=== PATIENT | male | born 1985 | race Caucasian/White ===

== ENCOUNTER 2019-08-16 09:33 | Emergency (ER) | payer OTHER, SELFPAY ==
[2019-08-16 09:35] VITALS: BP 150/105; PULSE 81; RESP 18; TEMP 36.1; O2SAT 97; BMI 30.5
--- NOTE | 2019-08-16 09:48 | CT_ITS ---
STUDY: CT ABDOMEN AND PELVIS WITHOUT CONTRAST REASON FOR EXAM: Male, 34 years old. RIGHT FLANK PAIN -- HX-KIDNEY STONE RADIATION DOSAGE (If Supplied By Facility): CTDIvol = ( 15.29 ) mGy, DLP = ( 886.21 ) mGycm TECHNIQUE: Transaxial images were obtained from the dome of the diaphragm to the symphysis pubis without oral contrast, and without intravenous contrast. Sagittal and coronal images were reconstructed. Individualized dose optimization techniques were used for this CT. COMPARISON: None. FINDINGS: There is a 4 mm right lung nodule (axial image #3 series 2) The visualized portions of the heart are within normal limits. There is decreased attenuation of the liver consistent with steatosis. Normal gallbladder and extrahepatic biliary system. Normal spleen. Normal pancreas. Normal bilateral adrenal glands. There is mild hydroureteronephrosis on the right there is a 4 mm calculus at the distal ureter adjacent to the bladder (axial image #169 series 2) Normal left kidney. Normal visualized stomach. Normal small intestine. Normal colon. The appendix is visualized and appears normal. Normal abdominal aorta. Normal inferior vena cava. Normal retroperitoneum. Normal urinary bladder. Normal abdominal wall. Normal osseous structures. CT/Abdomen/Pelvis without Cont IMPRESSION: 4 mm distal ureteral calculus with mild hydroureteronephrosis on the right. 4 mm right lung nodule. Dedicated CT of the chest is recommended. Liver steatosis. Electronically Signed: Martín Smalls MD at 10:37 EST Tel , Service support ,
--- NOTE | 2019-08-16 09:51 | ED.VIS.GEN ---
History of Present Illness Chief Complaint: Flank Pain Informant: Patient, Family Narrative: Patient states that approximately 2 days ago he began to have a pain in the right flank. He was asymptomatic yesterday this morning pain returned in the right flank and in the right lower abdomen. The patient notes nausea and vomiting. He states this feels very similar to the kidney stone he had approximately 2 years ago. He did not have to have surgery to pass it. He denies any fevers. He denies any diarrhea. No prior abdominal surgeries. Past Medical History - Allergies and Home Meds Allergies/Adverse Reactions: Allergies No Known Allergies Allergy (Verified 08/16/19 09:35) Primary Care Physician: Ana Rosa Michele MD [STAFF PHYSICIAN] - (call to arrange follow up for the pulmonary nodule we discussed) Smoking Status: Never smoker Review of Systems General: Denies: Chills, Fever, Sweats Eyes: Denies: Visual changes - bilaterally, Diplopia ENT: Denies: Rhinorrhea, Sore throat Cardiovascular: Denies: Chest pain, Palpitations Respiratory: Denies: Dyspnea, Cough, Dyspnea on exertion Gastrointestinal: Reports: Nausea, Vomiting. Denies: Abdominal pain, Diarrhea, Melena, Hematochezia Genitourinary: Reports: - - Right flank pain. Denies: Dysuria, Hematuria, Frequency Musculoskeletal: Denies: Back pain, Extremity Pain Skin: Denies: Rash, Wounds Neurological: Denies: Headache, Weakness, Numbness Physical Exam Vital Signs/Narrative: Vital Signs Temp Pulse Resp BP Pulse Ox 08/16/19 09:35 97 F L 81 18 150/105 H 97 Inital Vital Signs reviewed: Yes General: Well nourished, Well developed, No Acute Distress, - - Patient appears in pain pacing around the room holding the right flank Head: Normocephalic, Atraumatic Eyes: Perrl, EOMI ENT: Moist mucous membranes, No rhinorrhea Neck: Supple, Nontender Cardiovascular: Regular rate, Regular rhythm, No murmurs Respiratory: No distress, CTA bilaterally, Chest nontender Abdomen: Soft, Nontender, Nondistended, Normal bowel sounds Back: Nontender, Normal Inspection Extremities: Nontender, No edema Skin: Normal color, No rash Neurological: Alert, Oriented x3, Cranial nerves II-XII grossly intact, Normal Strength, Normal Sensation Psychological: Normal affect, Normal Mood Diagnostic/Tx/Re-eval - Medical Decision Making Creatinine was normal. Urinalysis demonstrates some microscopic blood. White count is normal. CT renal pelvis demonstrates a distal 4 mm stone on the right with mild hydronephroureter. Incidental pulmonary nodules also noted. These findings were relayed to the patient and recommended follow-up with primary care. The patient was given Toradol morphine and Zofran and fluids and feeling better. I will write for oxycodone and Zofran. Return if worsening or concerns. ED Disposition - Plan for ED Patient: Disposition: Home or Assisted Living Diagnosis: Ureterolithiasis, Pulmonary nodule Instructions: KIDNEY STONE w/ Colic, PULMONARY NODULE, Solitary Prescriptions: Oxycodone [Oxyir] 5 - 10 mg PO Q6H PRN PRN 4 Days #20 tab PRN Reason: Pain Or Fever Prescription Printed Ondansetron [Zofran Odt] 4 mg PO Q6H PRN PRN #10 tab PRN Reason: Nausea Prescription Printed Referrals: Ana Rosa Michele MD [STAFF PHYSICIAN] - (call to arrange follow up for the pulmonary nodule we discussed) Additional Instructions: You may also use 800 mg of Motrin every 8 hours in addition to the OxyIR for pain
[2019-08-16 09:54] LABS: Absolute Lymphocyte Count 4.51 X10^3/uL (0.83-4.51); Absolute Neutrophil Count 4.5 X10^3/uL (2.0-7.7); Basophil# 0.09 X10^3/uL; Basophil% 0.9 % (0-1); Eosinophil# 0.28 X10^3/uL; Eosinophils% 2.7 % (0-5); Hematocrit 46.5 % (40-54); Hemoglobin 16.2 g/dL (13.0-16.5); Lymphocyte # 4.51 X10^3/ul (4.0); Lymphocyte % 44.1 % (19-41); Mean Corp Hgb Conc 34.8 g/dL (32-36); Mean Corpuscular Hgb 29.5 pg (27.0-32.0); Mean Corpuscular Volume 84.7 fL (80-94); Mean Platelet Vol. 10.3 fl (6.2-12.0); Monocyte# 0.77 X10^3/uL; Monocyte% 7.5 % (0-10); NRBC Flagged by Analyzer 0 % (0-5); Neutrophil # 4.54 X10^3/uL (2.7-7.7); Neutrophil % 44.5 % (47-70); Platelet Count 220 K/mm3 (150-450); RBC Distribution Width CV 12.3 % (11.6-14.6); RBC Distribution Width SD 37.5 fl (35.1-43.9); Red Blood Count 5.49 M/mm3 (4.6-6.2); White Blood Count 10.2 K/mm3 (4.4-11.0)
[2019-08-16] MEDS: Ondansetron 4 MG/2 ML Vial IV (09:55)
[2019-08-16] MEDS: Ketorolac 30 MG/ML Syringe IV (09:55)
[2019-08-16] MEDS: Morphine 4 MG/ML Syringe IV (09:55)
[2019-08-16 10:10] LABS: Anion Gap 8 (5-15); BUN 15 mg/dL (7-18); BUN/Creat Ratio 12.8 RATIO (10-20); Calcium,Total 8.6 mg/dL (8.5-10.1); Chloride 106 mmol/L (98-107); Creatinine, Serum 1.17 mg/dL (0.70-1.30); EST Glomerular Filtration Rate 76 mL/min (>60); Est Glom Filt Rate - Afr Amer 92 mL/min (>60); Estimated Creatinine Clearance 100.54 ml/min; Glucose 113 mg/dL (74-106); Potassium 3.8 mmol/L (3.5-5.1); Sodium Level 142 mmol/L (136-145)
[2019-08-16 10:11] LABS: White Blood Cells 0 SEEN /hpf (0-5)
[2019-08-16 10:13] LABS: Color, Urine Yellow (Yellow); Glucose, Dipstick Normal (Normal); Ketone-Dipstick Negative (Negative); Leukocyte Esterase-Dipstick Negative /ul (Negative); Nitrite-Dipstick Negative (Negative); Occult Blood-Urine 250 /ul (Negative); Protein-Dipstick 15 mg/dl (Negative); Specific Gravity, Urine 1.025 (1.002-1.030); Urine Bilirubin Dipstick Negative (Negative); Urine Clarity Sl. Cloudy (Clear); Urine Urobilinogen Normal (Normal)
[2019-08-16] MEDS: 0.9% Normal Saline 1,000 ML 250 ML IV (10:14)
[2019-08-16 10:28] LABS: Bacteria RARE /hpf (None Seen); Mucous, Urine 1+ /hpf (<or=2+); Red Blood Cells-Urine 25-50 SEEN /hpf (0-5); Squamous Epithelial Cells - UA 0-5 SEEN /hpf (0-5)
[2019-08-16 11:01] VITALS: BP 123/76; PULSE 71; RESP 17; O2SAT 99
== END 2019-08-16 11:01 | disposition home or self-care (01) ==
PROVIDERS: Emergency Provider Emergency Medicine
DX: N13.2 Hydronephrosis with renal and ureteral calculous obstruction (principal); R91.1 Solitary pulmonary nodule; Z87.442 Personal history of urinary calculi
CPT/HCPCS: 74176; 80048; 81001; 85025; 96361; 96374; 96375; 99284; A4216; J2405

== ENCOUNTER 2020-10-15 08:07 | Emergency (ER) | payer OTHER, SELFPAY ==
[2020-10-15 08:08] VITALS: BP 157/118; PULSE 110; RESP 22; TEMP 36.6; O2SAT 98; BMI 31.0
--- NOTE | 2020-10-15 08:18 | CT_ITS ---
STUDY: CT ABDOMEN AND PELVIS WITHOUT CONTRAST REASON FOR EXAM: Male, 35 years old. LT FLANK PAIN, HX [place] RADIATION DOSAGE (If Supplied By Facility): CTDIvol = ( 11.78 ) mGy, DLP = ( 676.87 ) mGycm TECHNIQUE: Transaxial images were obtained from the dome of the diaphragm to the symphysis pubis without oral contrast, and without intravenous contrast. Sagittal and coronal images were reconstructed. Individualized dose optimization techniques were used for this CT. COMPARISON: Comparison is made with prior study dated 08/16/2019. FINDINGS: Stable 4 mm noncalcified nodule in the anterior aspect of the right lower lung as seen on axial image #5. The visualized portions of the heart are within normal limits. Normal liver. Normal gallbladder and extrahepatic biliary system. There is mild splenomegaly. Normal pancreas. Normal bilateral adrenal glands. Normal right kidney. Mild degree of left hydronephrosis due to a 2 mm calculus at the left ureterovesical junction. Normal visualized stomach. Normal small intestine. Normal colon. The appendix is visualized and appears normal. Normal abdominal aorta. Normal inferior vena cava. Normal retroperitoneum. Normal urinary bladder. Normal abdominal wall. Normal osseous structures. CT/Abdomen/Pelvis without Cont IMPRESSION: Mild degree of left hydronephrosis due to a 2 mm calculus at the left ureterovesical junction. Electronically Signed: Keyur Anthony MD at 9:38 EST , Service support ,
--- NOTE | 2020-10-15 08:19 | ED.DCSUM_ITS ---
- ER Visit Summary Date of Service: 10/15/20 Chief Complaint: Left flank pain History of Present Illness: The patient is a 35 M history of prior kidney stone on the right in 2019. He passed that on his own. Has never had any types of surgery besides dental. Patient states he had sudden onset left flank pain around 6 AM this morning. Associated nausea no vomiting or diarrhea. No dysuria or gross hematuria. No fever. Denies any trauma. Physical Examination: Appearing male. Vital signs stable and afebrile. Elevated blood pressure 157/118. He is walking about the room due to the pain. is present. HEENT exam unremarkable. Lungs clear to auscultation bilaterally. Heart regular rhythm rate about 110 no murmur. Abdomen soft nontender normal bowel sounds no peritoneal signs. No reproducible tenderness. Back nontender. Patient moving all 4 extremities. No edema. Neurologically is awake alert with no focal motor deficits. Neurologically is awake and alert with no focal motor deficits. Test Results: Chemistries unremarkable normal creatinine and gap. UA 250 blood and 10-25 red cells but no signs of infection. CT flank small there with a 2 mm left UVJ stone. Read by the radiologist reviewed by me and agree. Repeat exam patient had some recurrent pain was given a second dose of a half a milligram of Dilaudid this time. He is doing well on repeat exam at 10:07 AM and will be discharged to home. I went over all test results with both he and his . Emergency Department Course and Treatment: Patient with sudden onset left flank pain appears to be a kidney stone has a prior history of the same. Treated with IV Dilaudid and Zofran. Also Toradol. Screening labs, urinalysis and CT flank study being obtained. Treatment Plan: [place] for pain. Motrin for pain. Strain his urine. Follow-up as needed. Disposition: Discharge Impression: Acute left flank pain secondary to acute ureteral calculi of 2 mm. This note was generated with [employer] dictation software. It may contain incorrect words, spelling, and punctuation that were not noted in review of the chart prior to signing ED Disposition - Plan for ED Patient: Disposition: Home or Assisted Living Instructions: ED Kidney Stone w/ Colic Referrals: Humza Sahu MD [STAFF PHYSICIAN] - 3-5 Days if not improving Additional Instructions: Plenty of fluids and rest. Strain your urine for the past stone. Follow-up with with the urologist Dr. Marc Sahu if you do not pass the stone if continued pain. [place] for more severe pain and Motrin. Make sure you are drinking plenty of fluids and taking in plenty of fiber to prevent constipation.
--- NOTE | 2020-10-15 08:21 | DCINST.ED_ITS ---
ED Disposition - Plan for ED Patient: Disposition: Home or Assisted Living Instructions: ED Kidney Stone w/ Colic Prescriptions: Hydrocodone Bitart/Apap 5-325 [[place] 5MG-325MG] 1 - 2 tab PO Q4H PRN PRN 3 Days #10 tab PRN Reason: Pain Prescription Printed Referrals: Humza Sahu MD [STAFF PHYSICIAN] - 3-5 Days if not improving Additional Instructions: Plenty of fluids and rest. Strain your urine for the past stone. Follow-up with with the urologist Dr. Marc Sahu if you do not pass the stone if continued pain. [place] for more severe pain and Motrin. Make sure you are drinking plenty of fluids and taking in plenty of fiber to prevent constipation.
[2020-10-15] MEDS: Ondansetron 4 MG/2 ML Vial IV (08:24)
[2020-10-15] MEDS: HYDROmorphone 1 MG/ML Syringe IV (08:27)
[2020-10-15] MEDS: Ketorolac 30 MG/ML Syringe IV (08:31)
[2020-10-15 09:08] LABS: Anion Gap 6 (5-15); BUN 18 mg/dL (7-18); BUN/Creat Ratio 14.9 RATIO (10-20); Calcium,Total 8.4 mg/dL (8.5-10.1); Chloride 111 mmol/L (98-107); Creatinine, Serum 1.21 mg/dL (0.70-1.30); EST Glomerular Filtration Rate 73 mL/min (>60); Est Glom Filt Rate - Afr Amer 88 mL/min (>60); Estimated Creatinine Clearance 93.53 ml/min; Glucose 129 mg/dL (74-106); Potassium 3.9 mmol/L (3.5-5.1); Sodium Level 141 mmol/L (136-145)
[2020-10-15 09:10] LABS: Bacteria 0 SEEN /hpf (None Seen); Mucous, Urine 0 SEEN /hpf (<or=2+)
[2020-10-15 09:13] LABS: Color, Urine Yellow (Yellow); Glucose, Dipstick Normal (Normal); Ketone-Dipstick 5 mg/dl (Negative); Leukocyte Esterase-Dipstick 25 /ul (Negative); Nitrite-Dipstick Negative (Negative); Occult Blood-Urine 250 /ul (Negative); Protein-Dipstick 30 mg/dl (Negative); Specific Gravity, Urine 1.025 (1.002-1.030); Urine Bilirubin Dipstick Negative (Negative); Urine Clarity Sl. Cloudy (Clear); Urine Urobilinogen 1 mg/dl (Normal)
[2020-10-15 09:21] LABS: Red Blood Cells-Urine 10-25 SEEN /hpf (0-5)
[2020-10-15 09:23] LABS: Squamous Epithelial Cells - UA 0-5 SEEN /hpf (0-5); White Blood Cells 0-5 SEEN /hpf (0-5)
[2020-10-15] MEDS: HYDROmorphone 0.5 MG/0.5 ML SYRINGE IV (10:01)
[2020-10-15 10:34] VITALS: BP 135/99; PULSE 78; RESP 16; O2SAT 98
== END 2020-10-15 10:38 | disposition home or self-care (01) ==
LOC: ED 09:17
PROVIDERS: Emergency Provider Emergency Medicine
DX: N13.2 Hydronephrosis with renal and ureteral calculous obstruction (principal); Z87.442 Personal history of urinary calculi; Z72.0 Tobacco use
CPT/HCPCS: 36415; 74176; 80048; 81001; 96374; 96375; 96376; 99283; A4216; J2405

== ENCOUNTER 2022-07-08 00:51 | Emergency (ER) | payer OTHER, SELFPAY ==
[2022-07-08 00:52] VITALS: BP 183/113; PULSE 81; RESP 18; TEMP 36.8; O2SAT 100; BMI 30.7
[2022-07-08] MEDS: MethylPREDNISolone 125 MG/2 ML Vial IV (01:39)
[2022-07-08 01:48] LABS: Absolute Lymphocyte Count 4.16 X10^3/uL (0.83-4.51); Absolute Neutrophil Count 4.1 X10^3/uL (2.0-7.7); Basophil# 0.06 X10^3/uL; Basophil% 0.6 % (0-1); Eosinophil# 0.29 X10^3/uL; Eosinophils% 3.1 % (0-5); Hematocrit 43.8 % (40-54); Hemoglobin 14.9 g/dL (13.0-16.5); Lymphocyte # 4.16 X10^3/ul (0.83-4.51); Lymphocyte % 44.2 % (19-41); Mean Corpuscular Volume 85.2 fL (80-94); Monocyte# 0.79 X10^3/uL; Monocyte% 8.4 % (0-10); NRBC Flagged by Analyzer 0 % (0-5); Neutrophil % 43.5 % (47-70); Platelet Count 219 K/mm3 (150-450); RBC Distribution Width SD 37.1 fl (35.1-43.9); Red Blood Count 5.14 M/mm3 (4.6-6.2); White Blood Count 9.4 K/mm3 (4.4-11.0)
[2022-07-08 01:54] LABS: Bacteria 0 SEEN /hpf (None Seen); Color, Urine Yellow (Yellow); Glucose, Dipstick Normal (Normal); Ketone-Dipstick 5 mg/dl (Negative); Leukocyte Esterase-Dipstick Negative /ul (Negative); Mucous, Urine 0 SEEN /hpf (<or=2+); Nitrite-Dipstick Negative (Negative); Occult Blood-Urine 10 /ul (Negative); Protein-Dipstick Negative (Negative); Red Blood Cells-Urine 0 SEEN /hpf (0-5); Squamous Epithelial Cells - UA 0 SEEN /hpf (0-5); Urine Bilirubin Dipstick Negative (Negative); Urine Clarity Clear (Clear); Urine Urobilinogen 1 mg/dl (Normal); Urine pH 6.5 (5.0 - 8.0); White Blood Cells 0 SEEN /hpf (0-5)
[2022-07-08 02:01] LABS: Anion Gap 6 (5-15); BUN 20 mg/dL (7-18); BUN/Creat Ratio 22.2 RATIO (10-20); Calcium,Total 8.9 mg/dL (8.5-10.1); Chloride 108 mmol/L (98-107); EST Glomerular Filtration Rate 101 mL/min (>60); Est Glom Filt Rate - Afr Amer 122 mL/min (>60); Estimated Creatinine Clearance 124.54 ml/min; Glucose 109 mg/dL (74-106); Potassium 3.7 mmol/L (3.5-5.1); Sodium Level 143 mmol/L (136-145)
--- NOTE | 2022-07-08 02:49 | EDS_ITS ---
HPI History of Present Illness Chief Complaint: Rash Narrative Narrative: Patient is a 36-year-old male with no reported medical issues. 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 He states has been no new exposure but he states he first noticed a rash around his buttocks and genital region approximate 3 weeks ago. He states since that time the rash is spread down his legs. He states there is no difficulty breathing or swallowing but he has had irritation/itching to the legs which is kept him up this evening and secondary to that and the fact its been going on for so long he presents for evaluation. PFSH PFSH no medical history Home Medications prednisone 10 mg tablet See Rx Instructions .Route .COMPLEX #45 tabs 07/08/22 [Rx Last Taken Unknown] Allergy/AdvReac Type Severity Reaction Status Date / Time No Known Allergies Allergy Verified 07/08/22 00:56 Social History Smoking Status: Never smoker ROS ROS ED Constitutional Constitutional ED: Denies chills or fever(s) ENT ENT ED: Denies sore throat Cardiovascular Cardiovascular: Denies chest pain Respiratory/Chest Respiratory/Chest: Denies cough or dyspnea Gastrointestinal Gastrointestinal: Denies abdominal pain, diarrhea, nausea or vomiting Genitourinary Genitourinary ED: Denies dysuria or hematuria Musculoskeletal Musculoskeletal: Denies myalgias Integumentary Reports rash Neurologic Neurologic: Denies headache(s) Hematologic/Lymphatic Hematologic/Lymphatic: Denies easy bleeding or easy bruising EXAM Physical Exam Const Vital Signs: 07/08/22 00:52 07/08/22 03:06 Temperature 98.2 F Temperature Source Temporal Pulse Rate 81 Respiratory Rate 18 18 Blood Pressure 183/113 H Blood Pressure Mean 136 Pulse Ox 100 Oxygen Delivery Method Room Air Positive well nourished and well developed General Appearance ED: well developed HEENT Reports moist mucous membranes HEENT Narrative: No tongue or lip swelling no oral lesions no airway edema or compromise Eyes PERRL and EOMs intact bilaterally Neck supple Resp normal respiratory effort and clear to auscultation bilaterally Cardio regular rate and regular rhythm GI normal to inspection, nondistended, normoactive bowel sounds, non-tender, non- distended and no masses Auscultation: normoactive bowel sounds Palpation: soft Extremity normal to inspection Neuro oriented x3 and CN's II-XII intact bilaterally Sensorium / Orientation: alert Psych mental status grossly normal Skin Skin Narrative: Patient has nonblanchable purpuric lesions across his bilateral legs extending from the ankles up into the buttocks/genital region. There is no involvement of the palms or soles. MDM MDM MDM Narrative Medical decision making narrative: Patient presented to the ER hypertensive but otherwise with stable vitals. He reported a rash that began in the buttock/genital region and progressed on the course of the legs over 3 weeks with no known exposure. The rash is more purpura in nature and nonblanching. 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 With concern for renal involvement I do like to perform basic labs and a urine sample. Kidney function is normal and the urine sample reveals no blood within the microscopic sample. Patient also does not have any abdominal pain nor is he reported bloody stool. Therefore at this time I feel patient needs simply treatment with steroids to reduce inflammation but is otherwise safe for discharge. Lab Data Attestation: I reviewed the patient's lab results. Labs: Laboratory Results - last 24 hr 07/08/22 07/08/22 07/08/22 01:35 01:35 01:50 WBC 9.4 RBC 5.14 Hgb 14.9 Hct 43.8 MCV 85.2 MCH 29.0 MCHC 34.0 RDW Std Deviation 37.1 RDW Coeff of Lucille 12.0 Plt Count 219 MPV 10.0 Immature Gran % (Auto) 0.200 Neut % (Auto) 43.5 L Lymph % (Auto) 44.2 H Beckham % (Auto) 8.4 Eos % (Auto) 3.1 Baso % (Auto) 0.6 Absolute Neuts (auto) 4.1 Absolute Lymphs (auto) 4.16 Nucleated RBC % 0 Sodium 143 Potassium 3.7 Chloride 108 H Carbon Dioxide 29.0 Anion Gap 6 BUN 20 H Creatinine 0.90 Estim Creat Clear Calc 124.54 Est GFR (MDRD) Af Amer 122 Est GFR (MDRD) Non-Af 101 BUN/Creatinine Ratio 22.2 H Glucose 109 H Calcium 8.9 Urine Color Yellow Urine Clarity Clear Urine pH 6.5 Ur Specific [place] 1.020 Urine Protein Negative Urine Glucose (UA) Normal Urine Ketones 5 H Urine Occult Blood 10 H Urine Nitrite Negative Urine Bilirubin Negative Urine Urobilinogen 1 H Ur Leukocyte Esterase Negative Urine RBC 0 SEEN Urine WBC 0 SEEN Ur Squamous Epith Cells 0 SEEN Urine Bacteria 0 SEEN Urine Mucus 0 SEEN Discharge Plan Triage Chief Complaint: Rash ED Provider: Gunner Zuniga Dx/Rx/DC Orders Clinical Impression: Henoch-Schonlein purpura Instructions: ED Henoch-Schonlein Purpura Prescriptions: New prednisone 10 mg tablet See Rx Instructions .ROUTE .COMPLEX Qty: 45 0RF Rx Instructions: 10 mg orally ;5 pills by mouth days 1 through 34 pills by mouth days 4 through 63 pills by mouth days 7 through 92 pills by mouth days 10 through 121 pill by mouth days 13 through 15 Primary Care Provider: Care Physician,No Primary Referrals: Care Physician,No Primary [Primary Care Provider] - Fermín Hammer MD [Med Staff - Active Staff] - Activity Restrictions/Additional Instructions: Please take the steroids as directed to control inflammatory process and return to the ER should you have any further concerns Disposition Disposition: Home, Self Care Discharge Date/Time: 07/08/22 03:07
[2022-07-08 03:06] VITALS: RESP 18
== END 2022-07-08 03:07 | disposition home or self-care (01) ==
PROVIDERS: Emergency Provider Emergency Medicine; Visit Provider Emergency Medicine
DX: D69.0 Allergic purpura (principal)
CPT/HCPCS: 80048; 81001; 85025; 96374; 99283; A4216

== ENCOUNTER → 2023-03-09 | Outpatient (CLI) | payer OTHER, SELFPAY ==
[2023-03-09 15:16] LABS: Absolute Lymphocyte Count 2.87 X10^3/uL (0.83-4.51); Absolute Neutrophil Count 4.2 X10^3/uL (2.0-7.7); Basophil# 0.05 X10^3/uL; Basophil% 0.6 % (0-1); Eosinophil# 0.28 X10^3/uL; Eosinophils% 3.5 % (0-5); Hematocrit 46.8 % (40-54); Hemoglobin 16.1 g/dL (13.0-16.5); Lymphocyte # 2.87 X10^3/ul (0.83-4.51); Lymphocyte % 35.4 % (19-41); Mean Corp Hgb Conc 34.4 g/dL (32-36); Mean Corpuscular Hgb 29.5 pg (27.0-32.0); Mean Corpuscular Volume 85.7 fL (80-94); Mean Platelet Vol. 10.4 fl (6.2-12.0); Monocyte# 0.64 X10^3/uL; Monocyte% 7.9 % (0-10); NRBC Flagged by Analyzer 0 % (0-5); Neutrophil # 4.23 X10^3/uL (2.7-7.7); Neutrophil % 52.2 % (47-70); Platelet Count 227 K/mm3 (150-450); RBC Distribution Width CV 12.5 % (11.6-14.6); RBC Distribution Width SD 38.4 fl (35.1-43.9); Red Blood Count 5.46 M/mm3 (4.6-6.2); White Blood Count 8.1 K/mm3 (4.4-11.0)
[2023-03-09 15:46] LABS: ALB/GLOB Ratio 1.1 RATIO (0.9-2.4); AST(SGOT) 56 U/L (15-37); Alanine Aminotransfer ALT/SGPT 129 U/L (16-61); Albumin, Serum 3.9 g/dL (3.2-5.0); Alkaline Phosphatase 80 U/L (45-117); Anion Gap 6 (5-15); BUN 14 mg/dL (7-18); Calcium,Total 8.8 mg/dL (8.5-10.1); Chloride 108 mmol/L (98-107); Cholesterol 254 mg/dL (200); Creatinine, Serum 1.08 mg/dL (0.70-1.30); EST Glomerular Filtration Rate 82 mL/min (>60); Est Glom Filt Rate - Afr Amer 99 mL/min (>60); Globulin 3.6 g/dL (2.2-4.2); Glucose 92 mg/dL (74-106); High Density Lipoprotein 40 mg/dL; Potassium 4.2 mmol/L (3.5-5.1); Protein, Total 7.5 g/dL (6.4-8.2); Sodium Level 141 mmol/L (136-145); Thyroid Stim Hormone (TSH) 1.52 uIU/mL (0.358-3.74); Triglycerides 293 mg/dL; Very Low Density Lipoprotein 59 mg/dL (5-40)
== END | disposition home or self-care (01) ==
LOC: MFPLAB 11:47
PROVIDERS: PCP Family Medicine; Visit Provider Family Medicine
DX: Z13.220 Encounter for screening for lipoid disorders (principal); Z13.1 Encounter for screening for diabetes mellitus; E66.9 Obesity, unspecified
CPT/HCPCS: 36415; 80053; 80061; 84443; 85025

== ENCOUNTER 2025-02-24 16:16 | Emergency (ER) | payer OTHER, SELFPAY ==
[2025-02-24 16:17] VITALS: BP 106/83; PULSE 91; RESP 18; TEMP 36.1; O2SAT 99
[2025-02-24 18:16] VITALS: BP 129/76; PULSE 64; RESP 18; O2SAT 97
[2025-02-24] MEDS: Lidocaine 1% (20 ml mdv) 20 ML Vial 10 ML INFILT (19:00)
[2025-02-24 19:11] VITALS: BP 123/79; PULSE 72; RESP 18; TEMP 36.8; O2SAT 100
== END 2025-02-24 19:28 | disposition home or self-care (01) ==
PROVIDERS: Emergency Provider Emergency Medicine; PCP Family Medicine; Visit Provider Emergency Medicine
DX: S91.211A Laceration without foreign body of right great toe with damage to nail, initial encounter (principal); W30.89XA Contact with other specified agricultural machinery, initial encounter
CPT/HCPCS: 11760; 12002; 73660; 99282

== ENCOUNTER → 2025-05-09 | Outpatient (CLI) | payer OTHER, SELFPAY ==
[2025-05-09 18:29] LABS: AST(SGOT) 27 U/L (<=37); Alanine Aminotransfer ALT/SGPT 26 U/L (<=46); Albumin, Serum 4.5 g/dL (3.5-5.0); Alkaline Phosphatase 80 U/L (40-129); Anion Gap 13 (5-15); BUN 17 mg/dL (4-19); BUN/Creat Ratio 16.6 RATIO (10-20); Calcium,Total 9.1 mg/dL (7.6-11.0); Carbon Dioxide 23.4 mmol/L (21.0-32.0); Chloride 104 mmol/L (98-108); Cholesterol 219 mg/dL (<=200); Globulin 2.8 g/dL (2.2-4.2); Glucose 80 mg/dL (70-99); Low Density Lipoprotein Calc. 148 mg/dL; Potassium 3.6 mmol/L (3.3-5.1); Triglycerides 146 mg/dL; Very Low Density Lipoprotein 29 mg/dL (5-40); cholesterol:hdl ratio screen 5.26
== END | disposition home or self-care (01) ==
LOC: MTLAB 17:03
PROVIDERS: PCP Family Medicine; Referring Provider Nurse Practitioner Family; Visit Provider Nurse Practitioner Family
DX: Z13.220 Encounter for screening for lipoid disorders (principal); Z13.1 Encounter for screening for diabetes mellitus
CPT/HCPCS: 36415; 80053; 80061